=== PATIENT | female | born 1990 | race Caucasian/White ===

== ENCOUNTER 2018-03-16 18:32 | Emergency (ER) | payer MEDICAID, SELFPAY ==
[2018-03-16 18:37] VITALS: BP 129/99; PULSE 94; RESP 18; TEMP 37.2; O2SAT 99
--- NOTE | 2018-03-16 18:48 | ED.GENADUL ---
Disposition Clinical Impression: Infected dental carries, Pulpitis Disposition: HOME Condition: Good Instructions: Dental Caries (ED) Additional Instructions: Please take the antibiotic as directed. Please follow-up with a dentist as soon as possible. If you notice any worsening of your symptoms, or any new symptoms such as vomiting, diarrhea, worsening pain in your mouth, fever, chills, shortness of breath, chest pain, numbness, weakness, or fainting , please return immediately to the emergency department for reevaluation. Please follow up with your primary care provider as soon as possible for reassessment and reevaluation. As always, it was a pleasure participating in your medical care today. Prescriptions: Acetaminophen [Tylenol Extra Strength] 1,000 mg PO Q6H 5 Days #60 tab Amoxicillin 875/Clav. 125 [Augmentin 875-125 Tablet] 1 each PO BID #20 tab Ibuprofen [Motrin Ib] 600 mg PO Q6H 5 Days #60 tablet Referrals: Abby Lamb PA [Primary Care Provider] - Medical Decision Making - Medical Decision Making This is a pleasant 27-year-old female who presents with signs and symptoms of dental caries with suspected pulpitis. Physical exam demonstrates no evidence of abscess. No signs of systemic symptoms. Patient's tooth was blocked and she had excellent resolution of her pain. She was given antibiotic for home use, and Tylenol and Motrin prescriptions. We discussed red flags which to return as well as the importance of close follow-up with a dentist and the patient understands. I have extensively reviewed the treatment plan and discharge instructions with the patient. I have addressed all patient concerns at this time. The patient was made aware of what symptoms to monitor for that would warrant a return to the emergency department. Discussed the plan with the patient, they demonstrate verbal understanding and agreement with our assessment and plan at this time. Time out was taken to identify the correct patient, procedure, and site. Risks and benefits were discussed with the patient and consent was obtained. Direct pressure was held over the area prior to the procedure to reduce painful injection. 5 cc?s of Lidocaine 1% and Bupivacaine 0.25% was instilled into the left posterior jaw neck space with a 27 gauge needle. Moderate analgesia was obtained. The patient tolerated the procedure. There were no complications. History of Present Illness - General Chief complaint: DentalOral Stated complaint: TOOTH PAIN Time Seen by Provider: 03/16/18 18:48 - History of Present Illness Initial comments: Is a 27-year-old female with a past medical history of depression, Suboxone use, and dental caries who presents for dental pain. The patient states that for the last few months she has had pain in her lower teeth but she has been out of insurance money and been unable to see a dentist. Over the last few days the pain is got noticeably worse over tooth 23. She does admit to some very mild swelling but denies any fever, chills, drainage. She denies any vision changes, trismus or difficulty eating. She has no other complaints at this time. She denies any significant pertinent surgical history except for genitourinary abscesses which have required drainage. She denies any pertinent family history. She denies any other medical complaints at this time. - Related Data Acetaminophen [Tylenol] 650 mg PO Q6H PRN tab-cap 01/17/16 Buprenorphine/Naloxone [Suboxone 2 mg-0.5 mg Sl Film] 1 film PO DAILY 03/07/17 Acetaminophen [Tylenol Extra Strength] 1,000 mg PO Q6H 5 Days #60 tab 03/16/18 Amoxicillin 875/Clav. 125 [Augmentin 875-125 Tablet] 1 each PO BID #20 tab 03/16/18 Citalopram [CeleXA] 20 mg PO DAILY 03/16/18 Ibuprofen [Motrin Ib] 600 mg PO Q6H 5 Days #60 tablet 03/16/18 Varenicline [Chantix] 1 mg PO BID 03/16/18 Allergies Allergy/AdvReac Type Severity Reaction Status Date / Time No Known Drug Allergies Allergy Unverified 03/16/18 18:43 Review of Systems Other: 10 point review of systems was performed, pertinent positives and negatives are noted in the history of present illness. Past Medical History - Past Medical History Medical history: no medical history Current . History of infected lymph node surgery. 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 3.ENT: Atraumatic external nose and ears. Moist MM. Neck: Symmetric, trachea midline, No thyromegaly. Notable dental caries, poor dentition throughout. No significant swelling in the oral cavity. No fluctuance is noted. Tooth 23 certainly does look fairly disastrous, and does show evidence of severe dental carry. No significant cervical lymphadenopathy. No sublingual lymphadenopathy 4.CVS: +S1/S2, No murmurs or gallops. Peripheral pulses 2+ and equal in all extremities. Brisk capillary refill in all extremities. 5.RESP: Unlabored respiratory effort. Clear to auscultation bilaterally. No wheezes rales or rhonchi 6.GI: Soft, Nontender/Nondistended, No hepatosplenomegaly. No guarding or rebound. 7.MSK: Normocephalic/Atraumatic, Extremities w/o deformity or ttp No cyanosis or clubbing, Normal movement of all extremities 8.Skin: Warm, Dry. No rashes or lesions. 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 Sensation grossly intact, no focal neurologic deficits. 10.Psych: (AAO) x3. Appropriate mood and affect Course Vital Signs - 24 hr 03/16/18 18:37 Temperature 37.2 C Pulse 94 H Respiratory 18 Rate Blood Pressure 129/99 Pulse Oximetry 99
[2018-03-16] MEDS: Amoxicillin 875/Clav. 125 TAB PO (18:55)
== END 2018-03-16 19:00 | disposition home or self-care (01) ==
PROVIDERS: Emergency Provider Student in an Organized Health Care Education/Training Program; PCP Physician Assistant Medical
DX: K04.7 Periapical abscess without sinus (principal); K02.9 Dental caries, unspecified
CPT/HCPCS: 64402; 99283

== ENCOUNTER 2018-03-17 06:07 | Emergency (ER) | payer MEDICAID, SELFPAY ==
[2018-03-17 06:14] VITALS: BP 134/84; PULSE 84; RESP 16; TEMP 36.9; O2SAT 98
--- NOTE | 2018-03-17 06:31 | ED.GENADUL ---
Disposition Clinical Impression: Dental infection Disposition: HOME Condition: Good Instructions: Dental Abscess (ED) Additional Instructions: Be sure to get the prescription for antibiotic filled and take it tonight. Continue Motrin and Tylenol for pain. Use the benzocaine every 4-6 hours to help with the pain. If you have significant worsening swelling, erythema, fever return tomorrow. If not getting worse than continue antibiotic and contact dentist. Medical Decision Making - Medical Decision Making Patient here with facial swelling in the left anterior mandibular region. She was started on Augmentin last night for dental infection but has only had one dose. She is having no difficulty breathing or swallowing. She has had no fever. There is no erythema. The pain has returned. I think it is reasonable to try another 24 hours of oral antibiotic coverage. Will use topical benzocaine in addition to the ibuprofen and Tylenol to help control pain. Return to the ED tomorrow morning if continued worsening swelling/erythema/fever. Otherwise if improving then continue antibiotic and follow-up with dentist. History of Present Illness - General Chief complaint: DentalOral Stated complaint: DENTAL Time Seen by Provider: 03/17/18 06:10 Source: patient, old records reviewed Mode of arrival: ambulatory Limitations: no limitations - History of Present Illness Initial comments: Patient seen just under 12 hours ago for dental pain. She was given a dental block and started on Augmentin. She has only had one dose. This morning she awoke with continued pain but also noticed facial swelling in the left jaw. She is having no difficulty swallowing or breathing. She has had no fever. She represents for evaluation. - Related Data Buprenorphine/Naloxone [Suboxone 2 mg-0.5 mg Sl Film] 1 film PO DAILY 03/07/17 Acetaminophen [Tylenol] 1,000 mg PO Q6H 5 Days #60 tab 03/16/18 Amoxicillin 875/Clav. 125 [Augmentin 875-125 Tablet] 1 each PO BID #20 tab 03/16/18 Citalopram [CeleXA] 20 mg PO DAILY 03/16/18 Ibuprofen [Motrin Ib] 600 mg PO Q6H 5 Days #60 tablet 03/16/18 Varenicline [Chantix] 1 mg PO BID 03/16/18 Benzocaine 20% [Hurricaine Gel] 30 gm MM DIRECTED jar 03/17/18 Allergies Allergy/AdvReac Type Severity Reaction Status Date / Time No Known Drug Allergies Allergy Unverified 03/17/18 06:18 Review of Systems Constitutional: denies: fever ENT: dental pain Respiratory: denies: shortness of breath Skin: denies: change in color Neurological: denies: headache Past Medical History - Past Medical History Medical history: no medical history Surgical history: other (lymph node resection) Family history: no significant family history - Social History Smoking status: former smoker Alcohol use: none Drug use: marijuana, other (previous opiate addiction now on subutex) General Exam - General Limitations: no limitations General appearance: alert, in no apparent distress - Head Head exam: Present: atraumatic, normocephalic - Eye Eye exam: Present: normal apperance - ENT ENT exam: Present: other (Very poor dentition throughout. No gingival or buccal abscess noted. Significant left mandibular swelling anteriorly.) - Neck Neck exam: Present: full ROM, lymphadenopathy (Shotty anterior adenopathy) - Respiratory Respiratory exam: Absent: respiratory distress, stridor - Neurological Exam Neurological exam: Present: alert, oriented X3, CN II-XII intact. Absent: motor sensory deficit - Skin Skin exam: Absent: erythema Course Vital Signs - 24 hr 03/17/18 06:14 Temperature 98.4 F Pulse 84 Respiratory 16 Rate Blood Pressure 134/84 Pulse Oximetry 98
[2018-03-17] MEDS: Benzocaine 20% Gel 30 GM JAR MM (06:58)
[2018-03-17] MEDS: Amoxicillin 875/Clav. 125 TAB PO (06:58)
== END 2018-03-17 07:27 | disposition home or self-care (01) ==
PROVIDERS: Emergency Provider Emergency Medicine; PCP Physician Assistant Medical
DX: K04.7 Periapical abscess without sinus (principal); R22.0 Localized swelling, mass and lump, head
CPT/HCPCS: 99283

== ENCOUNTER 2018-05-22 12:28 | Outpatient (REF) | payer MEDICAID, SELFPAY ==
--- NOTE | 2018-05-22 11:00 | PAPFT_PTH ---
PATIENT: KATHIE SHARMA LOC: [facility] U#:[id number] AGE/SX: 27/F ROOM: RE05/22/[address]: Macario Hopkins : 1990 BED: DIS: 05/22/2018 SPEC #: [id number] RECD: 05/23/18 18:01 STATUS: TOÑA RENorma #: [id number] ISI: 05/22/18 11:[address]: Macario Hopkins DEPT: [facility] Cytology RECD BY: Ashlyn Vernon ENTERED: 05/23/18 18:01 SP TYPE: PAPFT OTHR DR: Abby Lamb Tissues: 1 - CX/ENDOCX FOR PAP SMEARS Procedures: PAP THIN PREP/[facility] Screening HPV DNA PROBE Comments: [id number] (CHLAMYDIA/GC)
[2018-05-24 14:21] LABS: Chlamydia Result Negative; GC Result Negative; Specimen Description SEE COMMENTS
== END 2018-05-22 12:48 ==
LOC: NCHCN 12:28
PROVIDERS: PCP Physician Assistant Medical; Visit Provider Family Medicine
DX: Z11.3 Encounter for screening for infections with a predominantly sexual mode of transmission (principal); Z12.4 Encounter for screening for malignant neoplasm of cervix
CPT/HCPCS: 87491; 87591; 88142; 87624

== ENCOUNTER 2018-08-21 16:31 | Outpatient (REF) | payer MEDICAID, SELFPAY ==
--- NOTE | 2018-08-21 15:30 | ENDO_PTH ---
PATIENT: KATHIE SHARMA LOC: [facility] U#:[id number] AGE/SX: 28/F ROOM: RE08/21/[address]: Paula Goncalves : 1990 BED: DIS: 08/21/2018 SPEC #: [id number] RECD: 08/21/18 17:28 STATUS: TOÑA RENorma #: [id number] ISI: 08/21/18 15:[address]: Paula Goncalves DEPT: Surgical Specimen RECD BY: Ashlyn Vernon ENTERED: 08/21/18 17:29 SP TYPE: Endo OTHR DR: Abby Lamb Tissues: 1 - ENDOCERVICAL BX/CURRETTE 2 - CERVICAL BIOPSY 3 - CERVICAL BIOPSY Procedures: GROSS AND MICRO LEVEL 4 Comments: [id number]
== END 2018-08-21 16:51 ==
LOC: LBN 16:31
PROVIDERS: PCP Physician Assistant Medical; Visit Provider Obstetrics & Gynecology Gynecology
DX: N87.0 Mild cervical dysplasia (principal); R87.610 Atypical squamous cells of undetermined significance on cytologic smear of cervix (ASC-US)
CPT/HCPCS: 88305

== ENCOUNTER 2020-08-26 14:26 | Outpatient (REF) | payer MEDICAID, SELFPAY ==
--- NOTE | 2020-08-26 13:10 | PAPFT_PTH ---
PATIENT: KATHIE SHARMA LOC: [facility] U#:[id number] AGE/SX: 30/F ROOM: RE08/26/[address]: Paula Goncalves : 1990 BED: DIS: 08/26/2020 SPEC #: [id number] RECD: 08/26/20 17:40 STATUS: TOÑA RENorma #: [id number] ISI: 08/26/20 13:[address]: Paula Goncalves DEPT: [facility] Cytology RECD BY: Ashlyn Vernon ENTERED: 08/26/20 17:40 SP TYPE: PAPFT OTHR DR: Abby Lamb Tissues: 1 - CX/ENDOCX FOR PAP SMEARS Procedures: PAP THIN PREP/[facility] Screening Comments: [id number]
== END 2020-08-26 14:27 | disposition home or self-care (01) ==
LOC: LBN 14:26
PROVIDERS: PCP Physician Assistant Medical; Visit Provider Obstetrics & Gynecology Gynecology
DX: Z12.4 Encounter for screening for malignant neoplasm of cervix (principal); Z87.410 Personal history of cervical dysplasia
CPT/HCPCS: 88142

== ENCOUNTER 2020-09-06 00:42 | Outpatient (CLI) | payer MEDICAID, SELFPAY ==
--- NOTE | 2020-09-06 09:00 | DI.US_ITS ---
EXAM: US PELVIS TRANSVAGINAL CLINICAL HISTORY: missing iud string,[id number] TECHNIQUE: Ultrasound of the pelvis was performed both transabdominal and transvaginal. COMPARISON: CT RENAL COLIC WO CONTRAST from 07/03/2012 FINDINGS: UTERUS: Measures 7.4 cm length x 2.9 cm AP x 4.6 cm wide. The previously present IUD seen on the 2012 CT sca n is no longer seen in the uterine canal nor within the endocervical canal There are no uterine fibroids. Endometrial thickness measures 5 mm. There is no fluid in the endometrial canal. CERVIX: There are multiple nabothian cysts noted in the upper cervix. RIGHT OVARY: Measures 3 x 2.1 x 3 cm Multiple small cysts are noted in the right ovary, all measuring less than 1 cm. Vascular flow is de monstrated in the right ovary. LEFT OVARY: Measures 3.6 x 2.2 x 2.2 cm Also multiple cysts in the left ovary noted, measuring less than 1 cm. CUL-DE-SAC: No free fluid evident. There are dilated vessels in the left adnexal region. This may indicate an element of pelvic congest ion IMPRESSION: 1. Normal appearing uterus and age-appropriate endometrium. No IUD evident (as was evident in the ut erus on the 2012 CT scan). 2. Multiple follicular cysts noted in both ovaries. No ominous solid renal masses. No extraovarian adnexal masses. 3. Prominent vessels noted in the left adnexa. This may indicate an element of pelvic congestion syn drome. DATA REPOSITORY:
== END 2020-09-06 00:43 ==
LOC: DI 00:43
PROVIDERS: PCP Physician Assistant Medical; Visit Provider Obstetrics & Gynecology Gynecology
DX: T83.32XA Displacement of intrauterine contraceptive device, initial encounter (principal); N83.02 Follicular cyst of left ovary; N83.01 Follicular cyst of right ovary
CPT/HCPCS: 76830; 76856